=== PATIENT | female | born 1980 | race Caucasian/White ===

== ENCOUNTER 2020-03-14 16:59 | Inpatient (IN) | payer OTHER ==
[~2020-03-14] VITALS: Ht 170.2 cm; Wt 86.3 kg
--- NOTE | 2020-03-14 17:27 | NUR ---
PATIENT MEETS [facility]. CINA =17. PATIENT IS GOING TO FOLLOW UP WITH RESIDENTIAL TREATMENT AT [facility] FOR HER AFTERCARE PLAN. VAMSHI GREENE B.A. BLOGS MANAGER
[2020-03-14 18:00] VITALS: BP 132/82; BP 172/94
[2020-03-14] MEDS ORDERED: 'CIPRO500 M1 PO (18:05)
[2020-03-14] MEDS ORDERED: BUSPIRONE HCL10 MG PO (18:05)
[2020-03-14] MEDS ORDERED: SERTRALINE HYDR50 MG PO (18:06)
[2020-03-14 18:52] LABS: BASO # 0.1 10*3/uL (0.0-0.1); BASO % 0.4 % (0.0-1.0); EOS # 0.3 10*3/uL (0.0-0.4); EOS % 2.2 % (1.0-4.0); HEMATOCRIT 43.5 % (37.0-47.0); LYMPH # 4.1 10*3/uL (1.3-4.4); LYMPH % 29.8 % (27.0-41.0); MEAN CORPUSCULAR HGB 30.2 pg (27.0-31.0); MEAN CORPUSCULAR HGB CONC 34.7 g/dl (33.0-37.0); MEAN PLATELET VOLUME 9.3 fl (9.6-12.3); MONO # 0.9 10*3/uL (0.1-1.0); MONO % 6.4 % (3.0-9.0); NEUT # 8.3 10*3/uL (2.3-7.9); NEUT % 60.9 % (47.0-73.0); PLATELET COUNT AUTOMATED 308 10*3/uL (130-400); RED CELL DISTRI WIDTH 13.5 % (0-14.5); WHITE BLOOD COUNT 13.7 10*3/uL (4.8-10.8)
[2020-03-14 19:08] LABS: ALBUMIN 3.6 gm/dl (3.1-4.5); ALKALINE PHOSPHATASE 70 U/L (45-117); BUN 13 mg/dl (7-24); CHLORIDE 109 mmol/L (98-107); CREATININE 0.83 mg/dL (0.55-1.02); LIPASE 139 U/L (73-393); POTASSIUM 3.8 mmol/L (3.5-5.1); SGOT/AST 15 IU/L (3-35); SGPT/ALT 32 U/L (12-78); SODIUM 140 mmol/L (136-145); TOTAL PROTEIN 7.5 gm/dL (6.4-8.2)
--- NOTE | 2020-03-14 19:16 | NUR ---
REPORT RECEIVED. PT LYING IN BED AT THIS TIME. CALL LIGHT IN REACH
[2020-03-14 19:24] LABS: BETA-HCG, QUANT < 1.0 mIU/mL (1-3); ETHYL ALCOHOL < 3.0 mg/dl (<3)
[2020-03-14 19:36] LABS: COLOR YELLOW (YELLOW)
[2020-03-14 19:37] LABS: BILIRUBIN NEGATIVE (NEGATIVE); BLOOD 2+ (NEGATIVE); CLARITY SL CLOUDY (CLEAR); GLUCOSE NEGATIVE (NEGATIVE); KETONE NEGATIVE (NEGATIVE); LEUKO ESTERASE 1+ (NEGATIVE); NITRITE POSITIVE (NEGATIVE); SPECIFIC GRAVITY 1.025 (1.005-1.030); UROBILINOGEN 0.2 E.U./dl (0.2-1.0)
[2020-03-14 19:44] LABS: BACTERIA 4+; EPITHELIAL CELLS 31-40; WBC 16-20 wbc/hpf (0-5)
[2020-03-14 19:52] LABS: URINE AMPHETAMINES < 1000 (1000ng/ml); URINE BARBITURATES < 200 (200ng/ml); URINE BENZODIAZEPINES < 200 (200ng/ml); URINE CANNABINOIDS (THC) > 50 (50ng/ml); URINE COCAINE > 300 (300ng/ml); URINE METHADONE < 300 (300ng/ml); URINE OPIATES < 300 (300ng/ml)
[2020-03-14 20:00] VITALS: BP 130/85
[2020-03-14 20:02] LABS: URINE PHENCYCLIDINE < 25 (25ng/ml)
[2020-03-15] VITALS: BP 117/73
--- NOTE | 2020-03-15 | NUR ---
PT SLEEPING AT THIS TIME, CALL LIGHT IN REACH
--- NOTE | 2020-03-15 02:00 | NUR ---
PT SLEEPING AT THIS TIME, RESPIRATIONS EASY AND UNLABORED. CALL LIGHT IN REACH
[2020-03-15 08:00] VITALS: BP 126/81
--- NOTE | 2020-03-15 08:06 | NUR ---
TALKING ON PHONE. NO VOICED COMPALINTS. TOLERATED PO MEDS WELL THIS AM. CALL LIGHT IN REACH.
[2020-03-15 12:00] VITALS: BP 125/82
--- NOTE | 2020-03-15 14:26 | NUR ---
[facility]PHANIE STAFF SPOKE TO [facility]. PATIENT HAS BEEN ACCEPTED FOR THEIR RESIDENTIAL PROGRAM. STEPHANIE STAFF IN TO SEE PATIENT. VAMSHI GREENE B.A. SYSTEMS SOFTWARE DEVELOPER
[2020-03-15 16:00] VITALS: BP 110/67
--- NOTE | 2020-03-15 19:20 | NUR ---
REPORT RECEIVED. PT SLEEPING AT THIS TIME. CALL LIGHT IN REACH
[2020-03-15 20:00] VITALS: BP 134/76
--- NOTE | 2020-03-15 21:30 | NUR ---
ATIVAN TAPER GIVEN, PT VOICES NO COMPLAINTS OF WITHDRAWAL. RESTING COMFORTABLY AT THIS TIME. CALL LIGHT IN REACH
[2020-03-16] VITALS: BP 107/60
--- NOTE | 2020-03-16 | NUR ---
PT SLEEPING AT THIS TIME, RESPIRATIONS EASY AND UNLABORED. CALL LIGHT IN REACH
[2020-03-16 08:00] VITALS: BP 116/69
[2020-03-16 12:00] VITALS: BP 103/58
--- NOTE | 2020-03-16 13:15 | NUR ---
VAMSHI WITH [facility] CALLED DOWN. ASKED ME TO CALL RESIDENT TO SEE IF PT COULD STAY UNTIL THURSDAY DUE TO [facility] REQUEST. THEY ARE UNABLE TO ACCEPT PT UNTIL THURSDAY. PT FEELS IT WOULD BE BEST TO GO STRAIGHT THERE FOLLOWING HOSPITAL DISCAHARGE TO REDUCE CHANCES OF RELAPSE. NOTIFIED OF REQUEST/REASONING. SAID IT WOULD BE OK FOR PT TO STAY UNTIL THURSDAY. VAMSHI NOTIFIED OF DECISION.
--- NOTE | 2020-03-16 13:19 | NUR ---
PATIENT IS SCHEDULED TO GO TO [facility] ON THURSDAY, March POST DISCHARGE. [facility] STAFF WILL SET UP TRANSPORTATION THROUGH PATIENT'S INSURANCE ON Thursday. PATIENT AGREES AND UNDERSTANDS HER AFTERCARE PLAN. VAMSHI GREENE B.A. FIELD SERVICES MANAGER
[2020-03-16 17:07] VITALS: BP 124/83
--- NOTE | 2020-03-16 19:53 | NUR ---
24 HR chart check completed.
[2020-03-16 20:00] VITALS: BP 110/59
--- NOTE | 2020-03-16 20:00 | NUR ---
RESTING IN BED TALKING ON PHONE. NO ACUTE DISTRESS NOTED. RESPIRATIONS EASY. LUNGS DIMINISHED, CLEAR. PULSE OX 97% RA. CALL LIGHT WITHIN REACH. NO VOICED COMPLAINTS
--- NOTE | 2020-03-16 21:45 | NUR ---
Patient displaying withdrawal symptoms, including: irritability, anxiousness, restlessness and agitation. Scheduled/PRN medications provided, SEE EMAR. Will continue to monitor medication effectiveness.
--- NOTE | 2020-03-16 23:00 | NUR ---
Patient resting. Responding to scheduled medications with fewer complaints of pain and anxiety.
[2020-03-17] VITALS: BP 103/54
--- NOTE | 2020-03-17 | NUR ---
SLEEPING. NO DISTRESS NOTED. RESPIRATIONS EASY. VSS. CALL LIGHT WITHIN REACH
--- NOTE | 2020-03-17 06:00 | NUR ---
SLEPT THROUGHOUT NIGHT WITH NO ACUTE DISTRESS NOTED. RESPIRATIONS EASY. CALL LIGHT WITHIN REACH. NO VOICED COMPLAINTS THIS SHIFT
[2020-03-17 06:16] LABS: BASO # 0.1 10*3/uL (0.0-0.1); BASO % 0.5 % (0.0-1.0); EOS # 0.4 10*3/uL (0.0-0.4); EOS % 3.2 % (1.0-4.0); HEMATOCRIT 42.5 % (37.0-47.0); LYMPH # 4.4 10*3/uL (1.3-4.4); LYMPH % 39.5 % (27.0-41.0); MEAN CELL VOLUME 89.7 fl (81.0-99.0); MEAN CORPUSCULAR HGB 29.5 pg (27.0-31.0); MEAN CORPUSCULAR HGB CONC 32.9 g/dl (33.0-37.0); MEAN PLATELET VOLUME 9.1 fl (9.6-12.3); MONO # 0.8 10*3/uL (0.1-1.0); NEUT # 5.5 10*3/uL (2.3-7.9); NEUT % 49.4 % (47.0-73.0); PLATELET COUNT AUTOMATED 248 10*3/uL (130-400); RED BLOOD COUNT 4.74 10*6/uL (4.10-5.10); RED CELL DISTRI WIDTH 13.3 % (0-14.5); WHITE BLOOD COUNT 11.2 10*3/uL (4.8-10.8)
[2020-03-17 06:26] LABS: CREATININE 0.99 mg/dL (0.55-1.02)
[2020-03-17 08:00] VITALS: BP 105/66
[2020-03-17 12:00] VITALS: BP 121/78
--- NOTE | 2020-03-17 13:20 | NUR ---
MG CITRATE GIVEN FOR CONSTIPATION COMPLAINTS. WILL MONITOR. CALL LIGHT IN REACH.
[2020-03-17 16:00] VITALS: BP 107/52
--- NOTE | 2020-03-17 19:42 | NUR ---
24 HR chart check completed.
[2020-03-17 20:00] VITALS: BP 116/79
--- NOTE | 2020-03-17 20:02 | NUR ---
Patient displaying withdrawal symptoms, including: irritability, anxiousness, restlessness and agitation. Patient reports the following symptoms of withdrawal: nausea. Scheduled/PRN medications provided, SEE EMAR. Will continue to monitor medication effectiveness.
--- NOTE | 2020-03-17 21:00 | NUR ---
Patient resting. Responding to scheduled medications with fewer complaints of pain and anxiety.
[2020-03-18] VITALS: BP 117/78
--- NOTE | 2020-03-18 | NUR ---
SLEEPING. NO DISTRESS NOTED. RESPIRATIONS EASY. VSS. CALL LIGHT WITHIN REACH
--- NOTE | 2020-03-18 06:00 | NUR ---
Patient resting. Responding to scheduled medications with fewer complaints of pain and anxiety.
[2020-03-18 06:15] LABS: BASO # 0.1 10*3/uL (0.0-0.1); BASO % 0.5 % (0.0-1.0); EOS # 0.4 10*3/uL (0.0-0.4); EOS % 3.2 % (1.0-4.0); HEMATOCRIT 43.1 % (37.0-47.0); LYMPH # 4.2 10*3/uL (1.3-4.4); LYMPH % 37.4 % (27.0-41.0); MEAN CORPUSCULAR HGB 29.9 pg (27.0-31.0); MEAN CORPUSCULAR HGB CONC 33.2 g/dl (33.0-37.0); MEAN PLATELET VOLUME 9.3 fl (9.6-12.3); MONO # 0.8 10*3/uL (0.1-1.0); MONO % 6.7 % (3.0-9.0); NEUT # 5.8 10*3/uL (2.3-7.9); PLATELET COUNT AUTOMATED 254 10*3/uL (130-400); RED BLOOD COUNT 4.79 10*6/uL (4.10-5.10); RED CELL DISTRI WIDTH 13.2 % (0-14.5); WHITE BLOOD COUNT 11.2 10*3/uL (4.8-10.8)
[2020-03-18 09:00] VITALS: BP 116/69
[2020-03-18 12:00] VITALS: BP 116/76
[2020-03-18 16:00] VITALS: BP 97/50
[2020-03-18 20:00] VITALS: BP 114/67
--- NOTE | 2020-03-18 20:08 | NUR ---
24 HR chart check completed.
--- NOTE | 2020-03-18 22:00 | NUR ---
Patient resting. Responding to scheduled medications with fewer complaints of pain and anxiety.
[2020-03-19] VITALS: BP 114/68
--- NOTE | 2020-03-19 | NUR ---
SLEEPING. NO DISTRESS NOTED. RESPIRATIONS EASY. VSS. CALL LIGHT WITHIN REACH.
--- NOTE | 2020-03-19 06:00 | NUR ---
Patient resting. Responding to scheduled medications with fewer complaints of pain and anxiety.
[2020-03-19 06:26] LABS: BASO # 0.1 10*3/uL (0.0-0.1); BASO % 0.5 % (0.0-1.0); EOS # 0.4 10*3/uL (0.0-0.4); EOS % 3.8 % (1.0-4.0); HEMATOCRIT 40.9 % (37.0-47.0); LYMPH # 3.9 10*3/uL (1.3-4.4); LYMPH % 38.7 % (27.0-41.0); MEAN CELL VOLUME 90.5 fl (81.0-99.0); MEAN CORPUSCULAR HGB 29.9 pg (27.0-31.0); MONO # 0.6 10*3/uL (0.1-1.0); MONO % 6.4 % (3.0-9.0); NEUT % 50.3 % (47.0-73.0); PLATELET COUNT AUTOMATED 244 10*3/uL (130-400); RED BLOOD COUNT 4.52 10*6/uL (4.10-5.10); RED CELL DISTRI WIDTH 13.2 % (0-14.5)
[2020-03-19 08:00] VITALS: BP 120/66
--- NOTE | 2020-03-19 08:51 | NUR ---
PT ANXIOUS AND WANTS TO GO TO [facility]. REFUSED PRN MEDICATION AT THIS TIME.
--- NOTE | 2020-03-19 10:15 | NUR ---
PT AMBULATED OFF THE FLOOR AFTER BEING INSTRUCTED TO WAIT FOR SECURITY TO GET HER BAG. DISCHARGE INSTRUCTIONS GIVEN TO PT.
--- NOTE | 2020-03-19 10:19 | NUR ---
DISCHARGE INSTRUCTIONS REVIEWED.
== END 2020-03-19 10:11 | disposition home or self-care (01) | DRG 774 ==
LOC: 4E 16:59
PROVIDERS: Internal Medicine; Student in an Organized Health Care Education/Training Program; ADMIT Internal Medicine
DX: F14.23 Cocaine dependence with withdrawal (principal); F12.23 Cannabis dependence with withdrawal; Z68.29 Body mass index [BMI] 29.0-29.9, adult; K52.9 Noninfective gastroenteritis and colitis, unspecified; F32.9 Major depressive disorder, single episode, unspecified; F41.9 Anxiety disorder, unspecified; N39.0 Urinary tract infection, site not specified; K57.90 Diverticulosis of intestine, part unspecified, without perforation or abscess without bleeding; F17.210 Nicotine dependence, cigarettes, uncomplicated; Z90.49 Acquired absence of other specified parts of digestive tract; Z83.3 Family history of diabetes mellitus; Z88.5 Allergy status to narcotic agent; Z91.040 Latex allergy status; Z79.899 Other long term (current) drug therapy

== ENCOUNTER 2020-04-23 13:56 | Inpatient (IN) | payer OTHER ==
[~2020-04-23] VITALS: Ht 170.1 cm; Wt 88.2 kg
[~2020-04-23 13:56] MED LIST: 'CIPRO500 M1 PO; BUSPIRONE HCL10 MG PO; SERTRALINE HYDR50 MG PO
[2020-04-23 14:14] VITALS: BP 100/65
[2020-04-23 14:38] LABS: BASO % 0.4 % (0.0-1.0); EOS # 0.3 10*3/uL (0.0-0.4); EOS % 2.7 % (1.0-4.0); HEMATOCRIT 41.4 % (37.0-47.0); LYMPH # 3.4 10*3/uL (1.3-4.4); LYMPH % 30.7 % (27.0-41.0); MEAN CELL VOLUME 86.8 fl (81.0-99.0); MEAN CORPUSCULAR HGB 29.8 pg (27.0-31.0); MEAN CORPUSCULAR HGB CONC 34.3 g/dl (33.0-37.0); MEAN PLATELET VOLUME 8.9 fl (9.6-12.3); MONO # 0.6 10*3/uL (0.1-1.0); MONO % 5.3 % (3.0-9.0); NEUT # 6.7 10*3/uL (2.3-7.9); NEUT % 60.6 % (47.0-73.0); PLATELET COUNT AUTOMATED 267 10*3/uL (130-400); RED BLOOD COUNT 4.77 10*6/uL (4.10-5.10); RED CELL DISTRI WIDTH 13.3 % (0-14.5)
[2020-04-23 14:54] LABS: ALBUMIN 3.6 gm/dl (3.1-4.5); ALKALINE PHOSPHATASE 65 U/L (45-117); BUN 12 mg/dl (7-24); CHLORIDE 107 mmol/L (98-107); CREATININE 0.85 mg/dL (0.55-1.02); SGOT/AST 14 IU/L (3-35); SGPT/ALT 28 U/L (12-78); SODIUM 137 mmol/L (136-145); TOTAL PROTEIN 7.6 gm/dL (6.4-8.2)
[2020-04-23 15:01] LABS: ETHYL ALCOHOL < 3.0 mg/dl (<3); TROPONIN I < 0.015 ng/ml (<0.045)
[2020-04-23 16:08] LABS: URINE AMPHETAMINES < 1000 (1000ng/ml); URINE BARBITURATES < 200 (200ng/ml); URINE BENZODIAZEPINES < 200 (200ng/ml); URINE CANNABINOIDS (THC) > 50 (50ng/ml); URINE COCAINE > 300 (300ng/ml); URINE METHADONE < 300 (300ng/ml); URINE OPIATES < 300 (300ng/ml)
[2020-04-23 16:11] LABS: URINE PHENCYCLIDINE < 25 (25ng/ml)
[2020-04-23 16:32] VITALS: BP 95/59
--- NOTE | 2020-04-23 16:42 | NUR ---
PT RESTING IN BED. WILL TAKE PT TO FLOOR SHORTLY. SHE IS IS NO ACUTE DISTRESS AT THIS TIME.
--- NOTE | 2020-04-23 17:10 | NUR ---
A 39, admitted to 5E, under the services of JAMES Glover DO with a diagnosis of DIZZINESS [facility]. Chief complaint is DIZZY. Patient arrived via wheel chair from ER. Monitor applied. Initial assessment completed. Vital signs taken and recorded. JAMES GLOVER DO notified of admission to the unit. Orders received. See assessment for past medical history, medications and allergies. Patient and/or family oriented to unit. [facility] FLOOR visitation policy reviewed. Clothing/patient valuable form completed. DOTTIE WASHINGTON
[2020-04-23 17:15] VITALS: BP 126/68
[2020-04-23] MEDS ORDERED: HYDROXYZINE PAM50 MG PO (18:06)
--- NOTE | 2020-04-23 18:21 | NUR ---
NOTIFIED DR. GOFF PATIENT MED REC IS UP TO DATE. PATIENTS HOME MEDICATIONS SENT TO PHARMACY, CIGARETTES LOCKED UP IN [facility]
[2020-04-23 20:00] VITALS: BP 106/65
--- NOTE | 2020-04-23 20:30 | NUR ---
RESTING IN BED WITH EYES CLOSED; AROUSES EASILY FOR ASSESSMENT. IV FLUIDS INFUSING ORDERED INTO LEFT ANTECUBITAL; SITE ASYMPTOMATIC. PT. REFUSES ANY MEDICATIONS AT THIS TIME. CALL LIGHT WITHIN REACH.
[2020-04-23 22:27] LABS: BILIRUBIN NEGATIVE (NEGATIVE); CLARITY CLEAR (CLEAR); COLOR YELLOW (YELLOW); GLUCOSE NEGATIVE (NEGATIVE); KETONE NEGATIVE (NEGATIVE)
[2020-04-23 22:28] LABS: BLOOD NEGATIVE (NEGATIVE); LEUKO ESTERASE 1+ (NEGATIVE); NITRITE NEGATIVE (NEGATIVE); PH 6.5 (5.0-9.0); UROBILINOGEN 0.2 E.U./dl (0.2-1.0)
[2020-04-23 22:30] LABS: BACTERIA 1+; EPITHELIAL CELLS 21-30; WBC 21-30 wbc/hpf (0-5)
--- NOTE | 2020-04-23 23:20 | NUR ---
ASSUMED CARE OF THIS PATIENT. A&OX3. NO SIGNS OF DISCOMFORT OR DISTRESS NOTED. NEGATIVE ASSESSMENT. 1X BAG OF FLUIDS @ 100ML RUNNING. PATIENT DENIES ANY WITHDRAWAL SYMPTOMS AT THIS TIME. WILL MONITOR.
[2020-04-24] VITALS: BP 108/59
--- NOTE | 2020-04-24 01:19 | NUR ---
24 HOUR CHART CHECK COMPLETE.
[2020-04-24 08:00] VITALS: BP 109/61
[2020-04-24 12:00] VITALS: BP 109/60
[2020-04-24 16:00] VITALS: BP 94/38
--- NOTE | 2020-04-24 17:39 | NUR ---
PT RESTING IN BED WITH EYES CLOSED.AROUSES EASILY. NO DISTRESS NOTED. RESPS EASY ON RA. STABLE AT THIS TIME. CALL LIGHT IN REACH.
[2020-04-24 20:00] VITALS: BP 116/64
[2020-04-25] VITALS: BP 101/60
--- NOTE | 2020-04-25 00:02 | NUR ---
PATIENT RESTING IN BED. AROUSES EASILY. NO COMPLAINTS AT THIS TIME. CALL LIGHT WITHIN REACH, WILL MONITOR
--- NOTE | 2020-04-25 01:53 | NUR ---
24 HR chart check completed.
--- NOTE | 2020-04-25 02:46 | NUR ---
PATIENT REMAINS ASLEEP. NO DISTRESS NOTED. BREATHING IS EASY AND REGULAR. CALL LIGHT WITHIN REACH, WILL MONITOR
[2020-04-25 08:00] VITALS: BP 107/66
--- NOTE | 2020-04-25 10:11 | NUR ---
PT STATES NO NEEDS AT THIS TIME, RESTING IN BED QUIETLY. AM MEDICATIONS GIVEN.
--- NOTE | 2020-04-25 11:16 | NUR ---
PATIENT MEETS [facility]. CINA=18. PATIENT IS GOING TO [facility] FOR HER AFTERCARE PLAN. PATIENT IS SCHEDULED TO GO THURSDAY, April POST DISCHARGE. [facility] STAFF WILL FOLLOW UP WITH PATIENT CONCERNING TRANSPORTATION. VAMSHI GREENE B.A. QUALITY ASSURANCE INSPECTOR
[2020-04-25 12:00] VITALS: BP 110/76
--- NOTE | 2020-04-25 12:35 | NUR ---
PT STATES NO NEEDS AT THIS TIME.
[2020-04-25 16:00] VITALS: BP 113/60; BP 129/67
--- NOTE | 2020-04-25 16:02 | NUR ---
PATIENT REPORTS THAT SHE HAS TRANSPORTATION TO [facility] TOMORROW, April. VAMSHI GREENE B.A. PULLMAN CAR CLERK
[2020-04-25 20:00] VITALS: BP 112/67
--- NOTE | 2020-04-25 21:44 | NUR ---
PRN TRAZADONE AND VISTARIL GIVEN FOR PT COMPLAINTS OF SLEEPLESSNESS AND ANXIETY. CALL LIGHT WITHIN REACH, WILL MONITOR
--- NOTE | 2020-04-25 22:44 | NUR ---
PT STATES VISTARIL AND TRAZADONE INEFFECTIVE. RECOMMENDED PATIENT TRY AND TAKE HER LIBRIUM. PATIENT IN AGREEANCE.
[2020-04-26] VITALS: BP 112/60
--- NOTE | 2020-04-26 02:15 | NUR ---
PATIENT SLEEPING, NO DISTRESS NOTED, CALL LIGHT WITHIN REACH, WILL LISAIOR
--- NOTE | 2020-04-26 05:47 | NUR ---
PATIENT REFUSING LIBRIUM. SHE STATED SHE IS LEAVING TODAY AND HAS TO DRIVE.
--- NOTE | 2020-04-26 07:56 | NUR ---
Patient discharged in stable condition, referral letter provided to patient with specific instructions and appointment for ongoing treatment. Patient verbalizes understanding of discharge plan.
== END 2020-04-26 08:00 | disposition home or self-care (01) | DRG 774 ==
LOC: ED 13:56 → 5E 16:11 → EDHOLD 16:11 → 5E 16:33
PROVIDERS: Internal Medicine; Nurse Practitioner Family; ADMIT Internal Medicine
DX: F14.23 Cocaine dependence with withdrawal (principal); F12.23 Cannabis dependence with withdrawal; D72.829 Elevated white blood cell count, unspecified; I95.9 Hypotension, unspecified; F41.9 Anxiety disorder, unspecified; R73.9 Hyperglycemia, unspecified; F17.210 Nicotine dependence, cigarettes, uncomplicated; Z71.6 Tobacco abuse counseling; Z88.5 Allergy status to narcotic agent; Z91.040 Latex allergy status; Z90.49 Acquired absence of other specified parts of digestive tract; Z83.3 Family history of diabetes mellitus; Z79.899 Other long term (current) drug therapy